=== PATIENT | female | born 1960 | race Caucasian/White ===

== ENCOUNTER → 2019-09-28 14:21 | Outpatient (CLI) | payer BC, SELFPAY ==
--- NOTE | ~2019-09-28 | DEXA_ITS ---
Bone Density Report Name: Christin Mendoza Age: 59 Sex: Female Ethnicity: White Date of : 1960 Indication: postmenopausal; screening for osteoporosis; parental hip fracture; height loss; asthma or emphysema; hysterectomy; Referring Provider: JARRETTDARIN Study: Bone densitometry was performed. Exam Date: September 28, 2019 Accession number: [id number] Bone Density: Region BMD T-score Z-score Classification AP Spine (L1-L4) 1.009 -0.3 1.2 Normal Femoral Neck (Left) 0.768 -0.7 0.6 Normal Total Hip (Left) 1.026 0.7 1.7 Normal Femoral Neck (Right) 0.780 -0.6 0.7 Normal Total Hip (Right) 1.024 0.7 1.7 Normal Total Hip Mean 1.025 0.7 1.7 Normal World Health Organization criteria for BMD impression classify patients as: Normal (T-score at or above -1.0), Osteopenia (T-score between -1.0 and -2.5), or Osteoporosis (T-score at or below -2.5). 10-year Fracture Risk: FRAX not reported because: All T-scores for Spine Total, Hip Total, Femoral Neck at or above -1.0 Previous Exams: Region Exam Age BMD T-score BMD Change BMD Change Date g/cm2 vs Baseline vs Previous AP Spine(L1-L4) 09/28/2019 59 1.009 -0.3 -0.077 -0.015 06/03/2013 53 1.024 -0.2 -0.062* -0.062* 08/01/2010 50 1.086 0.4 Total Hip(Left) 09/28/2019 59 1.026 0.7 -0.024 -0.013 06/03/2013 53 1.039 0.8 -0.011 -0.011 08/01/2010 50 1.050 0.9 Total Hip(Right) 09/28/2019 59 1.024 0.7 -0.024 0.002 06/03/2013 53 1.022 0.7 -0.027 -0.027 08/01/2010 50 1.048 0.9 *Denotes significance at 95% confidence level, LSC for AP Spine = 0.022 g/cm2, LSC for Total Hip = 0.027 g/cm2 Clinical Information Provided by Patient: Parent has had a hip fracture Has used the following medications: Vitamin D, MTV Has the following medical conditions: Asthma or Emphysema, Hysterectomy, UTERINE CANCER 2013 Patient maximum height was 69.75 Menopause Age: 51 No regular weight bearing exercise Onset of menses at age 14 Number of children 0 Impression: The patient has normal bone mass. The patient has risk factors, including: parental hip fracture. No significant bone loss was observed. Discussion: BONE DENSITY IS ABOVE THE MINIMUM DESIRABLE LEVEL AT ALL SKELETAL SITES TESTED. This patient?s bone mineral density is above the minimum desirable level (T-score -1.0 or be
--- NOTE | ~2019-09-28 | MM_ITS ---
EXAMINATION: MM screening [facility] BI w ju HISTORY: Screening mammogram TECHNIQUE: Craniocaudal and mediolateral oblique 3-D tomosynthesis images were obtained and synthetic 2-D images were generated. CAD analysis was submitted and interpreted. COMPARISON: 04/14/2017, 04/08/2016, 12/07/2014 BREAST PARENCHYMAL COMPOSITION: The breasts are almost entirely fatty. FINDINGS: There is no evidence of suspicious mass, calcification, or architectural distortion to sugg est malignancy in either breast. There has been no suspicious interval change. IMPRESSION: 1. No mammographic evidence of malignancy. 2. Recommend routine screening mammography in one year. BI-RADS Category 1: Negative Reviewed, dictated and finalized at location A. ORK ENGINEER ADMINISTRATOR
== END ==
PROVIDERS: Visit Provider Nurse Practitioner Adult Health
DX: Z12.31 Encounter for screening mammogram for malignant neoplasm of breast (principal); Z78.0 Asymptomatic menopausal state
CPT/HCPCS: 77063; 77067; 77080

== ENCOUNTER 2020-09-08 00:52 | Outpatient (CLI) | payer BC, SELFPAY ==
[2020-09-08 18:47] LABS: SARS-CoV-2 RNA PCR Negative
== END 2020-09-08 00:53 | disposition home or self-care (01) ==
LOC: ANHCOVIDDT 00:52
PROVIDERS: PCP Family Medicine; Visit Provider Internal Medicine Gastroenterology
DX: Z01.812 Encounter for preprocedural laboratory examination (principal); Z20.822 Contact with and (suspected) exposure to COVID-19
CPT/HCPCS: C9803; U0003; U0005

== ENCOUNTER 2020-09-11 01:40 | Day surgery (SDC) | payer BC, SELFPAY ==
[2020-08-28 08:58] VITALS: BMI 37.4
[2020-09-11 06:17] VITALS: BP 148/91; PULSE 85; RESP 18; TEMP 36.1; O2SAT 100; BMI 35.4
[2020-09-11] MEDS: LACTATED RINGERS 1,000 ML 150 ML IV CONT (06:28)
--- NOTE | 2020-09-11 07:08 | WPDANESEPPF ---
Anes - Initial Pre Proc Eval Procedure: Operation Date: 09/11/20 07:30 Proposed Procedures p Screening Colonoscopy - Brendon Llanes MD Date/Time: 09/11/20 07:08 Surgeon: Brendon Llanes MD Pre Op Diagnosis: Malignant Neoplasm Screening Patient Data Age: 60 Gender: F Height: 5 ft 9 in Weight: 108.8 kg Last Vital Signs Temp 97 F L 09/11/20 06:17 Pulse 85 09/11/20 06:17 Resp 18 09/11/20 06:17 BP 148/91 H 09/11/20 06:17 Pulse Ox 100 09/11/20 06:17 Allergies Allergy/AdvReac Type Severity Reaction Status Date / Time latex Allergy Intermediate Rash Verified 09/11/20 06:15 Penicillins Allergy Intermediate Rash Verified 09/11/20 06:15 Home Medications Medication Instructions Recorded Confirmed Type albuterol sulfate 90 mcg/actuation 1 puff INHALATION Q4H PRN 08/26/20 08/28/20 History aerosol inhaler meloxicam 15 mg tablet 15 mg PO DAILY 08/26/20 08/28/20 History valacyclovir 500 mg tablet 500 mg PO QID tablet 08/26/20 08/28/20 History sodium,potassium,mag sulfates See Rx Instructions .ROUTE 08/27/20 Rx [Suprep Bowel Prep Kit] .COMPLEX #1 ml cholecalciferol (vitamin D3) 125 mcg PO DAILY 08/28/20 08/28/20 History [Vitamin D3] kucaymloicvb-daxf-epfpr acid 1 tablet PO DAILY 08/28/20 08/28/20 History [Centrum Women] valacyclovir 500 mg PO DAILY PRN 08/28/20 08/28/20 History Patient hx anesthesia problems: none Family hx anesthesia problems: none PMFSH Past Medical History Medical History (Updated 08/26/20 @ 16:46 by Caty Da Silva MA) Allergies Asthma Back pain Bowel trouble Bronchitis Dizziness Heartburn History of frequent headaches Neck pain Surgical History Surgical History (Updated 08/26/20 @ 16:54 by Caty Da Silva MA) H/O colonoscopy History of orthopedic surgery Social History Social History Smoking status: Former smoker Tobacco type: cigarettes Additional smoking assessment comments: OCC SMOKER 1PPK/WK QUIT AGE 38 Alcohol intake: former Substance use: never Substance use type: does not use Living arrangements: with family Spiritual care concerns: No Anes - Eval Final PreProcedure Day of Procedure 09/11/20 07:08 Patient weight: obese Heart: regular rate and rhythm Lungs: clear to auscultation Airway: Mallampati scale class II Neurological: alert and oriented Last oral intake: >/= 8 hours ASA classification: III Emergent: no Anesthetic plan: proceed Anesthesia type and monitoring: general GIVS and standard monitoring Informed Consent: The patient's anesthetic plan and its attendant risks and benefits were discussed with the patient/family/POA. Questions were solicited and answers provided to the satisfaction of the patient/family/POA.
--- NOTE | 2020-09-11 08:05 | WPDGICN ---
Assessment and Plan Assessment and plan (1) Encounter for screening colonoscopy: Code(s): Z12.11 - Encounter for screening for malignant neoplasm of colon Status: Acute Assessment and Plan: Patient's last colonoscopy was 10 years ago. Plan is for screening colonoscopy at this time. High-fiber diet recommended. (2) Rectal bleeding: Code(s): K62.5 - Hemorrhage of anus and rectum Status: Acute Assessment and Plan: Rectal bleeding appears to be from hemorrhoids. This will be evaluated time of endoscopy. High-fiber diet advised. Anusol or preparation H advised for any discomfort at the anus. GI Consult Note Consult date/time: 09/11/20 08:05 HPI: Christin Mendoza is a 60 year old female Presents for screening colonoscopy. Patient reports she has had occasional bright red blood per rectum off and on over the last year. She states her weight appetite bowel movements are otherwise normal. Her last colonoscopy was 10 years ago. Patient denies any abdominal pain. Her family history is noncontributory. She presents today for colonoscopy. Review of Systems Review of Systems: All systems reviewed & are unremarkable except as noted in HPI and below PMFSH Past Medical History Medical History (Updated 09/11/20 @ 08:07 by Brendon Llanes MD) Allergies Asthma Back pain Bowel trouble Bronchitis Dizziness Heartburn History of frequent headaches Neck pain Surgical History Surgical History (Updated 08/26/20 @ 16:54 by Caty Da Silva MA) H/O colonoscopy History of orthopedic surgery Social History Social History Smoking status: Former smoker Tobacco type: cigarettes Additional smoking assessment comments: OCC SMOKER 1PPK/WK QUIT AGE 38 Alcohol intake: former Substance use: never Substance use type: does not use Living arrangements: with family Spiritual care concerns: No Meds Home Medications and Allergies Home Medications Medication Instructions Recorded Confirmed Type albuterol sulfate 90 mcg/actuation 1 puff INHALATION Q4H PRN 08/26/20 08/28/20 History aerosol inhaler meloxicam 15 mg tablet 15 mg PO DAILY 08/26/20 08/28/20 History valacyclovir 500 mg tablet 500 mg PO QID tablet 08/26/20 08/28/20 History sodium,potassium,mag sulfates See Rx Instructions .ROUTE 08/27/20 Rx [Suprep Bowel Prep Kit] .COMPLEX #1 ml cholecalciferol (vitamin D3) 125 mcg PO DAILY 08/28/20 08/28/20 History [Vitamin D3] fayswvguwefy-tlub-agyhr acid 1 tablet PO DAILY 08/28/20 08/28/20 History [Centrum Women] valacyclovir 500 mg PO DAILY PRN 08/28/20 08/28/20 History Allergies Allergy/AdvReac Type Severity Reaction Status Date / Time latex Allergy Intermediate Rash Verified 09/11/20 06:15 Penicillins Allergy Intermediate Rash Verified 09/11/20 06:15 Vital Signs Vital Signs - 24 hr 09/11/20 06:17 Temperature 97 F L Pulse Rate 85 Respiratory Rate 18 Blood Pressure 148/91 H Pulse Oximetry 100 Exam Narrative: Exam Narrative: Physical exam reveals patient to be alert. Vital signs stable. HEENT exam is unremarkable. Lungs are clear to auscultation and percussion. Heart is without murmur or extra sounds. Abdominal exam bowel sounds are present soft nontender with no organomegaly. Digital external rectal exam is normal.
[2020-09-11 08:07] VITALS: BP 127/73; PULSE 57; RESP 25; O2SAT 100
[2020-09-11 08:17] VITALS: BP 126/77; PULSE 65; RESP 24; O2SAT 99
[2020-09-11 08:27] VITALS: BP 152/86; PULSE 61; RESP 18; O2SAT 100
== END 2020-09-11 08:38 | disposition home or self-care (01) ==
PROVIDERS: PCP Family Medicine; Visit Provider Internal Medicine Gastroenterology
PROC: 0DJD8ZZ Inspection of Lower Intestinal Tract, Via Natural or Artificial Opening Endoscopic (ICD-10-PCS; CPT 45378; principal; 2020-09-11 07:30)
DX: Z12.11 Encounter for screening for malignant neoplasm of colon (principal); K62.5 Hemorrhage of anus and rectum; K57.30 Diverticulosis of large intestine without perforation or abscess without bleeding; K64.8 Other hemorrhoids; J45.909 Unspecified asthma, uncomplicated; Z87.891 Personal history of nicotine dependence; E66.9 Obesity, unspecified; Z68.35 Body mass index [BMI] 35.0-35.9, adult
CPT/HCPCS: 45378; J2704; J7120

== ENCOUNTER → 2021-11-08 12:45 | Outpatient (CLI) | payer BC, SELFPAY ==
--- NOTE | ~2021-11-08 | MM_ITS ---
EXAMINATION: MM screening [facility] BI w ju HISTORY: Screening mammogram TECHNIQUE: Craniocaudal and mediolateral oblique 3-D tomosynthesis images were obtained and synthetic 2-D images were generated. CAD analysis was submitted and interpreted. COMPARISON: September 28, 2019, April 14, 2017, April 08, 2016 bilateral screening mammogram [facility] BREAST PARENCHYMAL COMPOSITION: The breasts are almost entirely fatty. FINDINGS: There is no evidence of suspicious mass, calcification, or architectural distortion to sugg est malignancy in either breast. There has been no suspicious interval change. IMPRESSION: 1. No mammographic evidence of malignancy. 2. Recommend routine screening mammography in one year. BI-RADS Category 1: Negative Reviewed, dictated and finalized at location A.
== END ==
PROVIDERS: PCP Nurse Practitioner Adult Health; Visit Provider Obstetrics & Gynecology Gynecology
DX: Z12.31 Encounter for screening mammogram for malignant neoplasm of breast (principal)
CPT/HCPCS: 77063; 77067

== ENCOUNTER → 2021-12-05 12:16 | Outpatient (CLI) | payer BC, SELFPAY ==
--- NOTE | ~2021-12-05 | DEXA_ITS ---
Bone Density Report Name: SHAYNE ABERNATHY Age: 61 Sex: Female Ethnicity: White Date of : 1960 Indication: postmenopausal; screening for osteoporosis; parental hip fracture; height loss; asthma or emphysema; hysterectomy; Referring Provider: JASMYN LORENZANA Study: Bone densitometry was performed. Exam Date: December 05, 2021 Accession number: [id number] Bone Density: Region BMD T-score Z-score Classification AP Spine (L1-L4) 1.002 -0.4 1.3 Normal Femoral Neck (Left) 0.778 -0.6 0.8 Normal Total Hip (Left) 1.039 0.8 1.9 Normal Femoral Neck (Right) 0.762 -0.8 0.7 Normal Total Hip (Right) 1.010 0.6 1.7 Normal Total Hip Mean 1.025 0.7 1.8 Normal World Health Organization criteria for BMD impression classify patients as: Normal (T-score at or above -1.0), Osteopenia (T-score between -1.0 and -2.5), or Osteoporosis (T-score at or below -2.5). 10-year Fracture Risk: FRAX not reported because: All T-scores for Spine Total, Hip Total, Femoral Neck at or above -1.0 Previous Exams: Region Exam Age BMD T-score BMD Change BMD Change Date g/cm2 vs Baseline vs Previous AP Spine(L1-L4) 12/05/2021 61 1.002 -0.4 -0.084 -0.008 09/28/2019 59 1.009 -0.3 -0.077 -0.015 06/03/2013 53 1.024 -0.2 -0.062* -0.062* 08/01/2010 50 1.086 0.4 Total Hip(Left) 12/05/2021 61 1.039 0.8 -0.012 0.012 09/28/2019 59 1.026 0.7 -0.024 -0.013 06/03/2013 53 1.039 0.8 -0.011 -0.011 08/01/2010 50 1.050 0.9 Total Hip(Right) 12/05/2021 61 1.010 0.6 -0.038* -0.014 09/28/2019 59 1.024 0.7 -0.024 0.002 06/03/2013 53 1.022 0.7 -0.027 -0.027 08/01/2010 50 1.048 0.9 *Denotes significance at 95% confidence level, LSC for AP Spine = 0.022 g/cm2, LSC for Total Hip = 0.027 g/cm2 Clinical Information Provided by Patient: Parent has had a hip fracture Has used the following medications: Vitamin D, MTV Has the following medical conditions: Asthma or Emphysema, Hysterectomy, UTERINE CANCER 2013 Patient maximum height was 69.75 Menopause Age: 51 No regular weight bearing exercise Onset of menses at age 14 Number of children 0 Impression: The patient has normal bone mass. The patient has risk factors, including: parental hip fracture. No significant bone loss was observe
== END ==
PROVIDERS: PCP Family Medicine; Visit Provider Obstetrics & Gynecology Gynecology
DX: Z78.0 Asymptomatic menopausal state (principal)
CPT/HCPCS: 77080